=== PATIENT | female | born 2000 | race Caucasian/White ===

== ENCOUNTER 2018-10-02 14:02 | Emergency (ER) | payer OTHER ==
[~2018-10-02] VITALS: Ht 165.1 cm; Wt 66.7 kg
[2018-10-02 15:28] LABS: CLUE CELLS NONE SEEN (NONE SEEN); WET PREP WBCS NONE SEEN (FEW)
[2018-10-02 15:32] LABS: CULTURE INDICATED? YES; MICROSCOPIC INDICATED
[2018-10-02 16:27] VITALS: BP 100/63
[2018-10-02] MEDS ORDERED: FLUCONAZOLE 100 MG TABLET ONE ×2 (16:32→16:34)
[2018-10-02] MEDS ORDERED: FLUCONAZOLE 100 MG TABLET PO ONE (17:00)
== END 2018-10-02 16:40 | disposition home or self-care (01) ==
LOC: ED 15:06
DX: A64 Unspecified sexually transmitted disease (principal); A60.04 Herpesviral vulvovaginitis; N39.0 Urinary tract infection, site not specified; B37.3 Candidiasis of vulva and vagina
CPT/HCPCS: 81001; 87086; 87106; 87210; 87491; 87591; 87808; 99283

== ENCOUNTER 2021-03-19 12:00 | Emergency (ER) | payer MEDICAID, MEDICARE, OTHER ==
[~2021-03-19] VITALS: Ht 165.1 cm; Wt 65.4 kg
--- NOTE | 2021-03-19 12:45 | NUR ---
BAD MIGRIANE IN FRONTAL SKULL X 4 WEEKS. DENIED ANY OTHER SYMPTOMS. DENIES VISION CHANGES AND HEAD TRAUMA. STATES SHE HAS N/V. [place]N [place] AT BEDSIDE FOR EVALUATION. PT ATTACHED TO MONITORS. VSS. PT CURLED UP WITH 10/10 HEAD PAIN. BOYFRIEND AT BEDSIDE.
[2021-03-19] MEDS ORDERED: METOCLOPRAMIDE 5 MG/ML, 2ML IVPush ONE (13:00)
[2021-03-19] MEDS ORDERED: DIPHENHYDRAMINE 50 MG/ML, 1ML IVPush ONE (13:00)
[2021-03-19] MEDS ORDERED: SODIUM CHLORIDE FLUSH 10ML SYR IVF ONE (13:00)
[2021-03-19] MEDS ORDERED: KETOROLAC 30 MG/1 ML IVPush ONE (13:00)
[2021-03-19] MEDS ORDERED: SODIUM CHLORIDE 0.9% 1,000ML IVBOLUS ONE (13:00)
[2021-03-19] MEDS ORDERED: KETOROLAC 30 MG/1 ML ONE (13:29)
[2021-03-19] MEDS ORDERED: METOCLOPRAMIDE 5 MG/ML, 2ML ONE (13:29)
[2021-03-19] MEDS ORDERED: DIPHENHYDRAMINE 50 MG/ML, 1ML ONE (13:29)
[2021-03-19 13:35] VITALS: BP 107/66
== END 2021-03-19 15:04 | disposition home or self-care (01) ==
LOC: ED 14:56
DX: G43.C0 Periodic headache syndromes in child or adult, not intractable (principal); G43.909 Migraine, unspecified, not intractable, without status migrainosus
CPT/HCPCS: 96361; 96374; 96375; 99284; J1200; J1885; J2765; J7030